=== PATIENT | male | born 1980 | race Caucasian/White ===

== ENCOUNTER 2024-09-04 14:55 | Outpatient (RCR) | payer OTHER | END 2024-09-05 | LOC: PT 14:55 | PROVIDERS: ATTEND Podiatrist Foot & Ankle Surgery | DX: S86.011A Strain of right Achilles tendon, initial encounter (principal); M76.61 Achilles tendinitis, right leg ==

== ENCOUNTER 2024-10-05 10:56 | Outpatient (RCR) | payer OTHER | END 2024-10-06 | LOC: PT 10:56 | PROVIDERS: ATTEND Podiatrist Foot & Ankle Surgery | DX: S86.011A Strain of right Achilles tendon, initial encounter (principal); M76.61 Achilles tendinitis, right leg ==

== ENCOUNTER 2024-11-01 11:00 | Outpatient (RCR) | payer OTHER | END 2024-11-03 | LOC: PT 11:00 | PROVIDERS: ATTEND Podiatrist Foot & Ankle Surgery | DX: S86.011A Strain of right Achilles tendon, initial encounter (principal); M76.61 Achilles tendinitis, right leg ==

== ENCOUNTER 2024-11-24 11:00 | Outpatient (RCR) | payer OTHER | END 2024-12-04 | LOC: PT 11:00 | PROVIDERS: ATTEND Podiatrist Foot & Ankle Surgery | DX: S86.011A Strain of right Achilles tendon, initial encounter (principal); M76.61 Achilles tendinitis, right leg ==